=== PATIENT | male | born 1970 | race Two or more races ===

== ENCOUNTER 2019-11-21 15:28 | Emergency (ER) | payer OTHER ==
[~2019-11-21] VITALS: Ht 177.8 cm; Wt 81.6 kg
--- NOTE | 2019-11-21 15:45 | NUR ---
BIB EMS FOR G-TUBE REMOVAL. PATIENT SENT BY PMD FOR G-TUBE REMOVAL, PER SNF RN REPORT, PATIENT ABLE TO TOLERATE ORAL INTAKE, AND G-TUBE REMOVAL NO LONGER NEEDED.
--- NOTE | 2019-11-21 15:53 | NUR ---
CALLED DR. PETTIT FOR TO CALL. LEFT MESSAGE AND WAITING FOR CALL BACK
--- NOTE | 2019-11-21 17:00 | NUR ---
DR PETTIT AND DR GREENBERG CURRENTLY ON DR PAWEL ACEVEDO
--- NOTE | 2019-11-21 17:12 | NUR ---
DR. GREENBERG REMOVED THE G-TUBE. COVERED WITH DRY DRESSING.
--- NOTE | 2019-11-21 18:29 | NUR ---
CALLED AM [facility] 2100 ETA
--- NOTE | 2019-11-21 19:51 | NUR ---
REPORT RECEIVED FROM GIBRAN MCCORMICK FOR DWAN.
--- NOTE | 2019-11-21 20:20 | NUR ---
REPORT GIVEN TO EMS. PT STABLE TO BE TRANSFERRED BACK TO THE FACILITY
[2019-11-21 20:52] VITALS: BP 106/74
--- NOTE | 2019-11-21 20:52 | NUR ---
Patient discharged to home in stable condition. Written and verbal after care instructions given. Patient verbalizes understanding of instruction.
== END 2019-11-21 20:52 ==
LOC: ER 15:34
DX: Z93.1 Gastrostomy status (principal); K21.9 Gastro-esophageal reflux disease without esophagitis

== ENCOUNTER 2019-12-10 17:24 | Inpatient (IN) | payer OTHER ==
[~2019-12-10] VITALS: Ht 175.3 cm; Wt 49.6 kg
--- NOTE | 2019-12-10 17:27 | NUR ---
ERICKA FROM [facility] C/O NAUSEA AND VOMITING FOR 3 TIMES TODAY. TO ER BED 12, HOOKED TO BP CUFF AND POX, CHANGED TO HOSP GOWN, WARM BLANKET PROVIDED, PATIENT AAO x 4, BREATHING EVEN AND UNLABORED. NAD NOTED, NOTED WITH COLOSTOMY, G-TUBE AND ANTOLIN PICC LINE. AWAITING MD CHAPMAN.
--- NOTE | 2019-12-10 17:28 | NUR ---
DR PARSONS AT BEDSIDE
[2019-12-10] MEDS ORDERED: ACET-2605 PO (17:35)
[2019-12-10] MEDS ORDERED: ONDA4TAB5 PO (17:35)
[2019-12-10] MEDS ORDERED: PANT40TA2 PO (17:35)
[2019-12-10] MEDS ORDERED: MAG30ORA PO (17:35)
[2019-12-10] MEDS ORDERED: CHOL100040 PO (17:35)
[2019-12-10] MEDS ORDERED: HEPA50008 SQ (17:35)
[2019-12-10] MEDS ORDERED: ACET-868 PO (17:35)
[2019-12-10] MEDS ORDERED: HYDR-4384 PO (17:35)
--- NOTE | 2019-12-10 17:47 | NUR ---
PICKED UP BY IDALIA SANTO VIA [facility] FOR CT SCAN
[2019-12-10] MEDS ORDERED: IV NS 0.9% 1,000 ML IV ONE (18:00)
[2019-12-10] MEDS ORDERED: ONDANSETRON HCL/PF - ER 4 MG/2 ML VIAL IV ONE (18:00)
[2019-12-10] MEDS ORDERED: ONDANSETRON HCL/PF 4 MG/2 ML VIAL ONE (18:26)
[2019-12-10 18:30] LABS: HEMATOCRIT 34 % (39-51); HEMOGLOBIN 11.4 g/dL (13.5-17.5); LYMPHOCYTES # (AUTO) 1.2 /CMM (0.8-4.8); LYMPHOCYTES % (AUTO) 4.2 % (20.0-44.0); MEAN CORPUSCULAR HGB CONC 34 g/dl (31.0-36.0); MEAN CORPUSCULAR VOLUME 77 fL (80-96); MONOCYTES # (AUTO) 1.8 /CMM (0.1-1.30); MONOCYTES % (AUTO) 6.2 % (2.0-12.0); NEUTROPHILS # (AUTO) 25.5 /CMM (1.8-8.9); NEUTROPHILS % (AUTO) 89.6 % (43.0-81.0); PLATELET COUNT (AUTO) 699 /CMM (150-450); RED BLOOD CELL COUNT(AUTO) 4.43 MIL/uL (4.5-6.0); WHITE BLOOD COUNT (AUTO) 28.5 K/uL (4.3-11.0)
[2019-12-10 18:32] LABS: ALBUMIN 3.6 g/dL (3.4-5.0); BILIRUBIN,DIRECT 0.2 mg/dL (0.0-0.2); BILIRUBIN,TOTAL 0.5 mg/dL (0.2-1.0); CALCIUM, SERUM 10.3 mg/dL (8.5-10.1); CREATININE 4.2 mg/dL (0.6-1.3); POTASSIUM 4.3 mmol/L (3.5-5.1); TOTAL PROTEIN, SERUM 9.1 g/dL (6.4-8.2)
--- NOTE | 2019-12-10 18:54 | NUR ---
PER DR. JAQUELINE MAYO TO GIVE MERREM.
[2019-12-10] MEDS ORDERED: VANCOMYCIN 1 GM in IV D5W 250 ML IV ONE (19:00)
[2019-12-10] MEDS ORDERED: MEROPENEM 500 MG in IV NS 0.9% 50 ML IV ONE (19:00)
[2019-12-10] MEDS ORDERED: NOREPINEPHRINE 8 MG in IV NS 0.9% 242 ML IV PRN (19:00)
[2019-12-10] MEDS ORDERED: PIPERACILLIN /TAZOBACTAM 2.25 G in IV D5W 50 ML IV ONE (19:00)
[2019-12-10] MEDS ORDERED: IV NS 0.9% 1,000 ML BAG IV ONE (19:00)
--- NOTE | 2019-12-10 19:12 | NUR ---
RAPID COVID SWAB DONE AND SENT TO LAB
--- NOTE | 2019-12-10 19:26 | NUR ---
RECORDS ADMINISTRATOR AT BEDSIDE FOR XRAY.
--- NOTE | 2019-12-10 19:57 | NUR ---
CALLED RT FOR ABG
[2019-12-10 20:07] LABS: CALCIUM, SERUM 8.4 mg/dL (8.5-10.1); CREATININE 3.9 mg/dL (0.6-1.3); POTASSIUM 3.8 mmol/L (3.5-5.1)
[2019-12-10 20:13] LABS: ALBUMIN 2.8 g/dL (3.4-5.0); BILIRUBIN,TOTAL 0.4 mg/dL (0.2-1.0); PHOSPHORUS 7.1 mg/dL (2.5-4.9)
[2019-12-10 20:17] LABS: MAGNESIUM 4.2 mg/dL (1.8-2.4)
--- NOTE | 2019-12-10 20:23 | NUR ---
COVID RESULT : NEG
--- NOTE | 2019-12-10 20:29 | NUR ---
RT AT BEDSIDE FOR ABG
--- NOTE | 2019-12-10 20:33 | NUR ---
HOUSE SUP MADE AWARE OF COVID RESULT. AWAITING HUI BED
[2019-12-10 20:38] LABS: ABG OXYGEN SATURATION 93.9 % (92.0-98.5); ABG PCO2 56.5 mmHg (35.0-45.0); ABG PO2 79.6 mmHg (75.0-100.0); AaDO2 2.5 mmHg; COHb 0.5 % (0.5-1.5); MetHb 0.4 % (0.0-1.5); O2Hb 93.1 % (94.0-97.0); SITE, ABG Right Radial; VENT MODE, BG ROOM AIR
--- NOTE | 2019-12-10 20:52 | NUR ---
HUI 114-1
--- NOTE | 2019-12-10 21:17 | NUR ---
called ms unit for report, nurse of patient and charge nurse not available at this time.
--- NOTE | 2019-12-10 21:54 | NUR ---
REPORT GIVEN TO THERESA SHAW HUI.
[2019-12-10 22:31] LABS: APPEARANCE,URINE CLEAR (CLEAR); BILIRUBIN,URINE NEGATIVE (NEGATIVE); BLOOD, URINE TRACE-INTA Ery/uL (NEGATIVE); COLOR,URINE YELLOW (YELLOW); KETONES,URINE NEGATIVE (NEGATIVE); LEUKOCYTE ESTERASE ,URINE NEGATIVE (NEGATIVE); NITRITE, URINE NEGATIVE (NEGATIVE); PH,URINE 8.5 (5.0-8.0); PROTEIN,URINE 30 mg/dl (NEGATIVE); UGLUCOSE NEGATIVE (NEGATIVE); UROBILINOGEN,URINE 0.2 EU/dL (0.2)
[2019-12-10 22:39] LABS: RBC,URINE 0-2 /HPF (0-2)
[2019-12-10 22:40] LABS: BACTERIA,URINE Few /HPF (None Seen); HYALINE CASTS, URINE Few /LPF (None Seen); MUCUS,URINE Few /LPF (None Seen); SQUAMOUS EPITHELIAL CELL,UR Few /HPF (None Seen)
--- NOTE | 2019-12-10 23:00 | NUR ---
RN NOTE PT RECEIVED IN BED A/A/O X3. ON RA SATING ABOVE 95%. NO SOB NOTED. ON TELE MONITOR SHOWING SR AT 80,s.PT HAS RIGHT NARE NG ON INTERMITTENT LOW SUCTION. PT HAS ANTOLIN PICC LINE AND 18G RFA . SAFETY MEASURES IN PLACE. CALL LIGHT IN REACH, BED AT LOWEST POSITION, LOCKED, SIDE RAILS UP X2, HOB ELEVATED.
[2019-12-10 23:10] VITALS: BP 114/81
[2019-12-10] MEDS ORDERED: DEXTROSE 50%-WATER 50 ML DISP.SYRIN IV PRN (23:30)
[2019-12-10] MEDS ORDERED: ZOLPIDEM TARTRATE 5 MG TABLET PO PRN (23:30)
[2019-12-10] MEDS ORDERED: ACETAMINOPHEN 325 MG TABLET PO PRN (23:30)
[2019-12-10] MEDS ORDERED: IV Sodium Chloride 3% 500 ML 500 ML IV SCH (23:30)
[2019-12-10] MEDS ORDERED: ONDANSETRON HCL/PF 4 MG/2 ML VIAL IVP PRN (23:30)
[2019-12-10] MEDS ORDERED: Z GUARD REMEDY 2 OZ OINT TP PRN (23:30)
[2019-12-10] MEDS ORDERED: CEFTRIAXONE 1 G VIAL ONE (23:37)
[2019-12-10 23:46] LABS: URINE SODIUM, RANDOM 52 mmol/l (40-220)
[2019-12-10] MEDS ORDERED: IV Sodium Chloride 3% 500 ML 500 ML IV ONE (23:51)
--- NOTE | 2019-12-10 23:54 | NUR ---
HUI RN NOTE INFORMED DR JAVIER HAYNES PT LACTIC ACID WENT UP TO 4.[address] HAYNES GAVE ORDER TO KEEP PT ON LOW INTERMITTENT SUCTIONING. ORDER NOTED AND CARRIED OUT.
[2019-12-10] MEDS: ENOXAPARIN SODIUM 40 MG/0.4 ML DISP.SYRIN SQ SCH (23:55)
[2019-12-10] MEDS: CEFTRIAXONE 1 G in IV D5W 50 ML IV SCH (23:58)
[2019-12-11] VITALS (9 sets, daily range): BP systolic 91–114; BP diastolic 56–87
[2019-12-11] MEDS: BLOOD SUGAR DIAGNOSTIC 1 EACH STRIP IN SCH ×5 (00:01→23:52)
[2019-12-11] MEDS: IV NS 0.9% 1,000 ML IV PRN ×2 (00:11→19:57)
[2019-12-11 00:16] LABS: OSMOLALITY,SERUM 282 mOS/kg (278-305); OSMOLALITY,URINE 311 mOS/kg (340-1090)
[2019-12-11] MEDS: MORPHINE SULFATE INJ 2 MG/ML DISP.SYRIN IV PRN ×3 (00:18→23:50)
--- NOTE | 2019-12-11 05:13 | NUR ---
per dr braga it is ok to give pt couple of ice chips.
[2019-12-11 07:05] LABS: BASOPHILS # (AUTO) 0.1 /CMM (0.0-0.2); BASOPHILS % (AUTO) 0.2 % (0.0-2.0); HEMATOCRIT 31 % (39-51); HEMOGLOBIN 10.2 g/dL (13.5-17.5); LYMPHOCYTES # (AUTO) 0.5 /CMM (0.8-4.8); LYMPHOCYTES % (AUTO) 1.4 % (20.0-44.0); MEAN CORPUSCULAR HGB CONC 33 g/dl (31.0-36.0); MEAN CORPUSCULAR VOLUME 78 fL (80-96); MONOCYTES # (AUTO) 1.4 /CMM (0.1-1.30); MONOCYTES % (AUTO) 3.7 % (2.0-12.0); NEUTROPHILS % (AUTO) 94.7 % (43.0-81.0); PLATELET COUNT (AUTO) 572 /CMM (150-450)
[2019-12-11 07:06] LABS: ALBUMIN 2.7 g/dL (3.4-5.0); BILIRUBIN,TOTAL 0.4 mg/dL (0.2-1.0); CALCIUM, SERUM 8.8 mg/dL (8.5-10.1); CREATININE 2.9 mg/dL (0.6-1.3); PHOSPHORUS 4.8 mg/dL (2.5-4.9); POTASSIUM 3.1 mmol/L (3.5-5.1); TOTAL PROTEIN, SERUM 7.3 g/dL (6.4-8.2)
[2019-12-11 07:18] LABS: THYROID STIMULATING HORMONE 3.445 uIU/mL (0.358-3.74)
[2019-12-11 07:20] LABS: MAGNESIUM 4.3 mg/dL (1.8-2.4)
--- NOTE | 2019-12-11 07:22 | NUR ---
PT REMAINED STABLE DURING MY SHIFT, REPORT GIVEN TO INCOMING NURSE FOR DAWN.
--- NOTE | 2019-12-11 08:00 | NUR ---
MONITORING COORDINATOR NOTES PATIENT HAS A RIGHT NARE NG TUBE AT LOW INTERMITTENT SUCTION, PLACEMENT OF NG TUBE CHECKED BY AUSCULTATION WITH POSITIVE AIR SOUND, PATIENT WILL HAVE X RAY FOLLOW THROUGH ORDERED ,PATIENT TAKEN TO RADIOLOGY REPORTED TO DR SANDRA RESILIENT TILE INSTALLER THAT BUN 77 CREAT 2.9 CL 77 K 3.1 NA 124 MAG 4.3 STATED THAT PATIENT GETTING BETTER AND HE WILL CHECK IT OUT
--- NOTE | 2019-12-11 08:00 | NUR ---
LOST AND FOUND CLERK NOTE PATIENT IN BED , ALERT ORIENTED X4 , ON RA NO SOB NOTED AT THIS TIME ,, WITJ COLOSTOMY NOTED BUTB IS LEAKING WILL CHANGE SOON , SOTERO WOUND NURSE AT BEDSIDE, ON NPO AT THIS PER EXPERIMENTAL MECHANICFILM SORTER REPORT RN OK TO GIVE ICE CHIPS , ON RT NARE TO LOW INTERMITTED SUCTION WITH BROWN COLOR D, RT IA PICC LINE IN PLACE AND RT FA HL IN PLACE AND FLUSHED WELL DRAINAGE NOTED, ALL NEEDS ATTENDED, BED IN LOWEST AND LOCKED POSITION, CALL LIGHT WITHIN REACH, WILL MONITOR
--- NOTE | 2019-12-11 08:04 | NUR ---
WOUND CARE CONSULT: PT PRESENTS CACHECTIC WITH FRAGILE SCAR TO SACRUM, PRESENT ON ADMISSION. PT NOTED TO HAVE COLOSTOMY AND ILEOSTOMY POUCHES. RECOMMENDATIONS MADE FOR SKIN PROTECTION. DISCUSSED WITH NURSING STAFF. WILL SEE PRN. BURNETTE IN AGREEMENT WITH PLAN OF CARE. Addendum: 12/11/19 at 0805 by SOTERO VAUGHAN WNDNU Amended: Links added.
[2019-12-11 08:21] LABS: LYMPHOCYTES % (MANUAL) 2 % (16-48); MONOCYTES % (MANUAL) 5 % (0-11.0); NEUTROPHILS % (MANUAL) 93 (42-76)
[2019-12-11] MEDS: PANTOPRAZOLE 40 MG VIAL IV SCH (08:48)
--- NOTE | 2019-12-11 08:53 | NUR ---
DIRECTOR HOSPICE OPERATIONS NOTE DR MONAHAN AT BEDSIDE NOTIFIED THAT BUN 77 CREAT 2.9 K 3.1 WBC 39 MAG 4.3 STATED THAT WILL CHECK IT OUT
[2019-12-11] MEDS ORDERED: DIATR MEGLU/DIATRIZOATE SODIUM 120 ML BOTTLE (GASTROGRAPHIN) ONE ×2 (09:56)
--- NOTE | 2019-12-11 10:00 | NUR ---
SLATE SPLITTER NOTE STILL WANTS TO HAVE ICE CHIPS PER RN FLORES SHE SPOKE WITH JAVIER COLON DNP GAVE ORDER OK TO GIVE WILL F\U
[2019-12-11] MEDS: POTASSIUM CL. PREMIX PERIPHER. 50 ML IV SCH ×2 (10:26→11:57)
--- NOTE | 2019-12-11 10:59 | NUR ---
DIAMOND SORTER NOTE DR SANDRA WEDGER AND GLUER NOTIFIED THAT BUN 77 CREAT 2.9 K 3.1 WBC 39 MAG 4.3 STATED THAT WILL CHECK IT OUT ,PER DR JULIO KELLOGG TO GIVE FLU VACCINE ,ORDER CARRIED OUT
--- NOTE | 2019-12-11 11:37 | NUR ---
Seasonal Clerk met with patient today to complete a psychosocial assessment. Reason for assessment is patient is reportedly homeless. Patient is alert and oriented x4 is able to make needs known. Patient is a 49 year-old male. Patient confirmed demographics on face sheet including date of and social security number. Patient reports to be homeless and has been homeless for two years. Patient reports being at [facility] for 1-2 weeks. Patient reports that [facility] placed him at [facility]. Per patient, he is willing to return to [facility] if needed. Patient did not express wanting placement elsewhere. Patient reports approximately $1000 in social security income and approximately $100 in food stamps. SW not able to complete assessment at this time as patient needed x-rays. SW will return to speak to the patient. SW remains available for all needs regarding this patient.
[2019-12-11] MEDS ORDERED: INFLUENZA VACCINE 2020-21 0.5 ML DISP.SYRIN IM ONE (13:00)
--- NOTE | 2019-12-11 13:00 | NUR ---
MS RN NOTE STILL WANTS TO HAVE ICE CHIPS NOTIFIED THAT PATIENT HAS X RAY FOLLOW THROU OK TO HOLD AT THIS TIME EXPLAINED TO PATIENT
--- NOTE | 2019-12-11 13:54 | NUR ---
SWEATBAND FLANGER NOTE BP 87/60 PAT AT BEDSIDE AWARE OF BP, NO NEW ORDER AT THIS TIME
--- NOTE | 2019-12-11 13:58 | NUR ---
STATION ATTENDANT NOTE PAT AT BEDSIDE RN DNP SURGERY ,NO ICE CHIPS AT THIS TIME ,WILL CALL [facility] TO GET RECORD FROM SURGERY , PAT ALSO AWARE THAT WBC IS [address] STATED THAT WILL ORDER [address] ABDOMEN
--- NOTE | 2019-12-11 14:09 | NUR ---
MANAGER ONCOLOGY NOTE NO ICE CHIP AT THIS TIME PAT DNP SPOKE WITH PATIENT
--- NOTE | 2019-12-11 14:41 | NUR ---
television cabinet finisher note since from 1100 till now no suction per radiology and pat dnp aware ,will monitor
[2019-12-11] MEDS ORDERED: IOHEXOL-300 100 ML VIAL IV ONE (17:06)
[2019-12-11] MEDS ORDERED: IV NS 0.9% 250 ML IV ONE (17:06)
[2019-12-11] MEDS ORDERED: CT SWABBABLE VALVE TRANS SET 1 EA INFUS.SET MC ONE (17:06)
--- NOTE | 2019-12-11 17:47 | NUR ---
telesales specialist note did not urinate stated did at radiology department a lot will f\u
--- NOTE | 2019-12-11 17:50 | NUR ---
telecasting technician note [facility]ed [facility]
[2019-12-11 18:38] LABS: CALCIUM, SERUM 8.6 mg/dL (8.5-10.1); CREATININE 2.1 mg/dL (0.6-1.3); POTASSIUM 3.4 mmol/L (3.5-5.1)
--- NOTE | 2019-12-11 19:03 | NUR ---
BELLMAN DRIVER NOTE CT ABDOMEN AND PELVIS DONE , REPORT GIVEN PAT DNP SURGERY, NO NEW ORDER GIVEN
--- NOTE | 2019-12-11 19:15 | NUR ---
MEDICAL VAN DRIVER NOTE UA COLLECTED ORDERED ,WILL CONT TO [facility] ENDORSED CARE TO NEXT SHIFT RN
[2019-12-11] MEDS: ENOXAPARIN SODIUM 40 MG/0.4 ML DISP.SYRIN SQ SCH (23:30)
[2019-12-11] MEDS: CEFTRIAXONE 1 G in IV D5W 50 ML IV SCH (23:49)
[2019-12-12] MEDS: IV NS 0.9% 1,000 ML IV PRN ×3 (04:38→22:39)
[2019-12-12] MEDS: MORPHINE SULFATE INJ 2 MG/ML DISP.SYRIN IV PRN ×2 (06:10→19:04)
[2019-12-12] MEDS: BLOOD SUGAR DIAGNOSTIC 1 EACH STRIP IN SCH ×3 (06:12→17:47)
[2019-12-12 06:14] LABS: APPEARANCE,URINE CLEAR (CLEAR); BILIRUBIN,URINE NEGATIVE (NEGATIVE); BLOOD, URINE NEGATIVE Ery/uL (NEGATIVE); COLOR,URINE YELLOW (YELLOW); KETONES,URINE NEGATIVE (NEGATIVE); LEUKOCYTE ESTERASE ,URINE NEGATIVE (NEGATIVE); NITRITE, URINE NEGATIVE (NEGATIVE); PH,URINE 8.5 (5.0-8.0); PROTEIN,URINE TRACE mg/dl (NEGATIVE); UGLUCOSE NEGATIVE (NEGATIVE); UROBILINOGEN,URINE 0.2 EU/dL (0.2)
[2019-12-12 06:20] LABS: HEMATOCRIT 26 % (39-51); HEMOGLOBIN 8.7 g/dL (13.5-17.5); LYMPHOCYTES # (AUTO) 1.9 /CMM (0.8-4.8); LYMPHOCYTES % (AUTO) 8.1 % (20.0-44.0); MEAN CORPUSCULAR HGB CONC 33 g/dl (31.0-36.0); MEAN CORPUSCULAR VOLUME 78 fL (80-96); MONOCYTES # (AUTO) 1.2 /CMM (0.1-1.30); MONOCYTES % (AUTO) 5.3 % (2.0-12.0); NEUTROPHILS # (AUTO) 19.7 /CMM (1.8-8.9); NEUTROPHILS % (AUTO) 86.6 % (43.0-81.0); PLATELET COUNT (AUTO) 413 /CMM (150-450); RED BLOOD CELL COUNT(AUTO) 3.36 MIL/uL (4.5-6.0); WHITE BLOOD COUNT (AUTO) 22.8 K/uL (4.3-11.0)
[2019-12-12 06:52] LABS: CREATININE, URINE 49.3 MG/DL (30.0-125.0); URINE TOTAL PROTEIN 63.9 mg/dL (0-11.9)
[2019-12-12 06:57] LABS: CALCIUM, SERUM 8.5 mg/dL (8.5-10.1); CREATININE 1.4 mg/dL (0.6-1.3); MAGNESIUM 3.2 mg/dL (1.8-2.4); PHOSPHORUS 2.6 mg/dL (2.5-4.9)
[2019-12-12 07:23] LABS: BACTERIA,URINE None seen /HPF (None Seen); RBC,URINE 0-1 /HPF (0-2); SQUAMOUS EPITHELIAL CELL,UR Few /HPF (None Seen); WBC,URINE 0-2 /HPF (0-3)
--- NOTE | 2019-12-12 07:30 | NUR ---
RECEIVED PATIENT IN BED. NO ACUTE DISTRESS NOTED. PATIENT ALERT & ORIENTED X2-3, WITH EPISODES OF CONFUSION. PATIENT ON ROOM AIR, BREATHING EVEN AND UNLABORED, SATURATING WELL AT 99%. PATIENT STRICT NPO ACKNOWLEDGED, PATIENT PROCEDURE LATER TODAY SO HOLDING LOVENOX ACKNOWLEDGED. PATIENT COLOSTOMY IN PLACE, INTACT, DRAINING WELL. PATIENT RIGHT UPPER ARM PICC LINE IN PLACE, INTACT, PATENT, FLUSHED WELL. PATIENT SAFETY MEASURES MAINTAINED. CALL LIGHT WITHIN REACH. WILL CONTINUE TO MONITOR.
[2019-12-12 08:00] VITALS: BP 97/63
[2019-12-12 08:15] LABS: POTASSIUM 2.8 mmol/L (3.5-5.1)
[2019-12-12] MEDS: PANTOPRAZOLE 40 MG VIAL IV SCH (08:46)
[2019-12-12 08:59] LABS: EOSINOPHIL,URINE None Seen
[2019-12-12] MEDS ORDERED: VANCOMYCIN 0.75 GM in IV D5W 250 ML IV SCH (09:00)
[2019-12-12] MEDS: VANCOMYCIN 1 GM in IV D5W 250 ML IV SCH (09:07)
[2019-12-12] MEDS: POTASSIUM CL. PREMIX PERIPHER. 50 ML IV SCH ×6 (09:07→14:08)
[2019-12-12] MEDS ORDERED: POTASSIUM CL. PREMIX PERIPHER. 50 ML IV SCH (09:30)
--- NOTE | 2019-12-12 10:29 | NUR ---
PATIENT REPORTS PAIN. PATIENT STRICT NPO STATUS, AND BLOOD PRESSURE 92/63. WILL NOT ADMINISTER PRN MORPHINE DUE TO LOW BLOOD PRESSURE, WILL NOT ADMINISTER PRN TYLENOL DUE TO STRICT NPO STATUS Addendum: 12/12/19 at 1037 by ROSITA CHU RN PATIENT SLEEPING BUT AROUSES EASILY, ABLE TO COMMUNICATE. WILL CONTINUE TO MONITOR.
--- NOTE | 2019-12-12 13:59 | NUR ---
FAXED MEDICAL RECORD INFORMATION AUTHORIZATION OVER TO [facility], AND GOT FAX CONFIRMATION. SPOKE TO MARY FROM [employer], SAID THEY WOULD FAX OVER THE MEDICAL RECORDS FOR THE PATIENT PHONE # [phone] FAX # [phone]
[2019-12-12 16:00] VITALS: BP 98/65
--- NOTE | 2019-12-12 18:05 | NUR ---
PATIENT IN BED. NO ACUTE DISTRESS NOTED. PATIENT ALERT & ORIENTED X2-3, WITH EPISODES OF CONFUSION. PATIENT ON ROOM AIR, BREATHING EVEN AND UNLABORED, SATURATING WELL AT 99%. PATIENT STRICT NPO ACKNOWLEDGED, PATIENT PROCEDURE LATER TODAY SO HOLDING LOVENOX ACKNOWLEDGED. PATIENT NG TUBGE IN PLACE, CLAMPED AND WILL CHECK RESIDUALS MANUALLY AT 1999. PATIENT COLOSTOMY IN PLACE, INTACT, DRAINING WELL. PATIENT RIGHT UPPER ARM PICC LINE IN PLACE, INTACT, PATENT, FLUSHED WELL. PATIENT SAFETY MEASURES MAINTAINED. CALL LIGHT WITHIN REACH. WILL ENDORSE PLAN OF CARE TO ONCOMING SHIFT FOR CONTINTUITY OF CARE.
--- NOTE | 2019-12-12 18:38 | NUR ---
PATIENT COMPLAINING OF PAIN. BLOOD PRESSURE STILL IN 90S (SYSTOLIC). PATIENT STRICT NPO, AND BP TOO LOW TO ADMINISTER 4MG MORPHINE ORDERED. CONTACTED DR. MONAHAN ABOUT THIS. AWAITING ORDERS
--- NOTE | 2019-12-12 18:52 | NUR ---
dr. beckford notified patient sbp on90's and c/o pain verified iv pain meds,per md fraser to give 2mg instead of 4mg of morphine,will administer once verified by pharmacy.
--- NOTE | 2019-12-12 19:25 | NUR ---
RN OPENING NOTES: RECEIVED PT A/OX3-4 IN BED RESTING COMFORTABLY. PATIENT IN NO S/SX OF ACUTE DISTRESS AT THIS TIME. NO SOB NOTED. PATIENT'S BREATHING IS EVEN AND UNLABORED. PATIENT IS ON ROOM AIR; TOLERATING WELL; SATURATING @97%.PATIENT ON MED SURG STATUS. NOTED NGT IN PLACED ON THE R NARE. PLACEMENT VERIFIED WITH AUSCULTATION. NO RESIDUAL TAKEN AT THIS TIME ;CLAMPED.NOTED IV SITE ON R UA PICC LINE;PATENT, INTACT AND FLUSHING WELL NO S/S OF INFECTION OR INFILTRATION; WITH IV FLUID RUNNING ORDERED. NOTED [address]IES WITH [address]AGS IN [address]; INTACT AND DRAINING WELL, NO SIGNS OF LEAKAGE AT THIS TIME. SAFETY MEASURES HAVE BEEN PROVIDED AND IMPLEMENTED. PATIENT BED ALARM IS ON. HEAD OF BED ELEVATED. BED IS LOCKED, IN LOWEST POSITION AND SIDE RAILS UP. CALL LIGHT WITHIN REACH OF THE PATIENT. ISOLATION PRECAUTIONS IN PLACE. WILL CONTINUE TO MONITOR AND REASSESS FOR ANY CHANGES AND WILL CARRY OUT ANY ONGOING AND ACTIVE MD ORDER.
[2019-12-12 20:00] VITALS: BP 99/62
--- NOTE | 2019-12-12 20:10 | NUR ---
RN NOTES -CARRIED OUT MISCELLANEOUS ORDER ( PER JOSÉ ANTONIOCARRY OUT CLERK- IF RESIDUAL IN NG-TUBE IS LESS THAN 100ML AT 2000, START CLEAR LIQUID DIET. -RN CHECK PLACEMENT of NG-TUBE, PLACEMENT VERIFIED AND CONFIRMED WITH ANOTHER RN ( SALLY ZALDIVAR) ABLE TO TAKE OUT 40ML OF RESIDUAL. WILL START CLEAR LIQUIDS PER MISCELLANEOUS ORDER. DIETIST MADE AWARE. WILL CONTINUE TO ASSESS AND MONITOT THROUGHOUT THE SHIFT.
[2019-12-12] MEDS: CEFTRIAXONE 1 G in IV D5W 50 ML IV SCH (22:39)
[2019-12-12] MEDS: ENOXAPARIN SODIUM 40 MG/0.4 ML DISP.SYRIN SQ SCH (22:41)
--- NOTE | 2019-12-12 23:00 | NUR ---
RN NOTES NO NOTED CHANGES TO PATIENT CONDITION/STATUS. STILL WORKER HELPER MADE AWARE. WILL CONTINUE TO MONITOR AND REASSESS FOR ANY CHANGES THROUGHOUT THE SHIFT.
[2019-12-13] MEDS: BLOOD SUGAR DIAGNOSTIC 1 EACH STRIP IN SCH ×4 (00:13→17:08)
[2019-12-13] MEDS: INSULIN REGULAR, HUMAN 100 UNIT/ML 3 ML VIAL SQ PRN ×3 (00:14→17:13)
[2019-12-13] MEDS: MORPHINE SULFATE INJ 2 MG/ML DISP.SYRIN IV PRN ×4 (00:26→21:27)
[2019-12-13] MEDS: VANCOMYCIN 1 GM in IV D5W 250 ML IV SCH ×2 (02:49→18:49)
[2019-12-13 04:00] VITALS: BP 100/69
[2019-12-13 06:42] LABS: BASOPHILS % (AUTO) 0.3 % (0.0-2.0); EOSINOPHILS % (AUTO) 0.2 % (0.0-6.0); HEMATOCRIT 23 % (39-51); HEMOGLOBIN 7.5 g/dL (13.5-17.5); LYMPHOCYTES # (AUTO) 1.8 /CMM (0.8-4.8); LYMPHOCYTES % (AUTO) 17.4 % (20.0-44.0); MEAN CORPUSCULAR HGB CONC 32 g/dl (31.0-36.0); MEAN CORPUSCULAR VOLUME 80 fL (80-96); MONOCYTES % (AUTO) 9.4 % (2.0-12.0); NEUTROPHILS # (AUTO) 7.6 /CMM (1.8-8.9); NEUTROPHILS % (AUTO) 72.7 % (43.0-81.0); PLATELET COUNT (AUTO) 376 /CMM (150-450); RED BLOOD CELL COUNT(AUTO) 2.93 MIL/uL (4.5-6.0); WHITE BLOOD COUNT (AUTO) 10.5 K/uL (4.3-11.0)
--- NOTE | 2019-12-13 06:50 | NUR ---
RN NOTES PATIENT REMAINS IN ROOM IN NO SIGNS OF RESPIRATORY DISTRESS. PATIENT SATURATING 99% OF 02. VITAL SIGNS WNL. IV LINE MAINTAINED, INTACT, PATENT AND FLUSHING, NO SITE REDNESS OR INFILTRATION. SAFETY PRECAUTIONS IN PLACE AND COMFORT MEASURES RENDERED. BED IN LOWEST POSITION, CALL LIGHT WITHIN REACH, BREAKS ON, SIDE RAILS UP. ALL NEEDS ATTENDED, MEDICATIONS GIVEN SCHEDULED AND ORDERED ; SHIFT ASSESSMENT/BEDBATH/SKIN CARE DONE. PATIENT KEPT CLEAN AND DRY. WILL ENDORSE TO INCOMING SHIFT FOR DAWN WITH ALL PERTINENT INFO REGARDING PATIENT STATUS.
[2019-12-13 07:05] LABS: CALCIUM, SERUM 8.3 mg/dL (8.5-10.1); CREATININE 0.7 mg/dL (0.6-1.3)
[2019-12-13 07:23] LABS: POTASSIUM 2.8 mmol/L (3.5-5.1)
--- NOTE | 2019-12-13 07:30 | NUR ---
RN OPENING NOTES Received patient in bed, A/Ox4, resting, HOB elevated, on room air tolerating well, SPO2 is 98%, distress or SOB noted, denies pain or discomfort at this time, NGT present in R nares, auscultated, no residual noted, no suction at this time, clamped, IV sites on R hand noted, on Upper arm PICC line, and IV line on FA, both intact and patent, flushing well, two colostomy bags noted on patent abdomen with clear liquid fluid, intact, no drain, no s/sx of leakage noted, safety measures implemented, call light in reach, bed is locked, in lowest position, will cont to monitor
[2019-12-13] MEDS: POTASSIUM CL. PREMIX PERIPHER. 50 ML IV SCH ×5 (08:06→14:23)
[2019-12-13] MEDS: PANTOPRAZOLE 40 MG VIAL IV SCH (08:06)
[2019-12-13] MEDS: IV NS 0.9% 1,000 ML IV PRN (08:06)
--- NOTE | 2019-12-13 10:00 | NUR ---
Per MD order NGT removed
--- NOTE | 2019-12-13 10:30 | NUR ---
Ostomy bags changed, patient is clean
--- NOTE | 2019-12-13 11:30 | NUR ---
complains on pain level 10/10 in his stomach, will give PRN medication
[2019-12-13 12:00] VITALS: BP 100/69
--- NOTE | 2019-12-13 12:00 | NUR ---
blood sugar is 64, patient is eating at this moment.
[2019-12-13] MEDS: ENSURE CLEAR 237 ML LIQUID (MIX BERRY) PO SCH ×2 (14:10→17:09)
--- NOTE | 2019-12-13 17:00 | NUR ---
Ostomy bags changed, output 500cc
--- NOTE | 2019-12-13 19:04 | NUR ---
RN CLOSING NOTES Patient remains in bed, tolerating running Vanco @250 cc/hr wee, comfort need attended, patient is clean, mediation given, maintained clear liquids.ostomy bags changed accordingly, bed is locked, call light in reach, safety measures implemented, will endorse to PM shift RN for RN
--- NOTE | 2019-12-13 19:20 | NUR ---
RN OPENING NOTES: RECEIVED PT A/O X4 IN BED RESTING COMFORTABLY. PATIENT IN NO S/SX OF ACUTE DISTRESS AT THIS TIME. NO SOB NOTED. PATIENT'S BREATHING IS EVEN AND UNLABORED. PATIENT IS ON ROOM AIR; TOLERATING WELL; SATURATING @99%.PATIENT ON MED SURG STATUS. PT ON CLEAR LIQUID DIET .NOTED IV SITE ON R UA PICC LINE;PATENT, INTACT AND FLUSHING WELL NO S/S OF INFECTION OR INFILTRATION; WITH IV FLUID RUNNING ORDERED. NOTED [address]AG[address]; INTACT AND DRAINING WELL, NO SIGNS OF LEAKAGE AT THIS TIME. SAFETY MEASURES HAVE BEEN PROVIDED AND IMPLEMENTED. PATIENT BED ALARM IS ON. HEAD OF BED ELEVATED. BED IS LOCKED, IN LOWEST POSITION AND SIDE RAILS UP. CALL LIGHT WITHIN REACH OF THE PATIENT. ISOLATION PRECAUTIONS IN PLACE. WILL CONTINUE TO MONITOR AND REASSESS FOR ANY CHANGES AND WILL CARRY OUT ANY ONGOING AND ACTIVE MD ORDER.
[2019-12-13 20:00] VITALS: BP 93/66
--- NOTE | 2019-12-13 20:15 | NUR ---
RN NOTES FACILITATED COLOSTOMY OUTPUT REMOVAL; WAS ABLE TO TAKE OUT 450ML OUTPUT. COLOSTOMY BAG.APPLIANCE REMAIN INTACT AND SECURED; NO SIGNS OF LEAKAGE. FAMILY AND CONSUMER SCIENCES PROFESSOR MADE AWARE. WILL CONTINUE TO ASSESS AND MONITOR THROUGHOUT THE SHIFT.
--- NOTE | 2019-12-13 22:00 | NUR ---
RN NOTES NO CHANGE IN PATIENT CONDITION AT THIS TIME PATIENT VITALS STABLE, NO SIGNS OF ACUTE RESPIRATORY DISTRESS. FIRER AUTOMATIC STOKER MADE AWARE. WILL CONTINUE TO MONITOR AND REASSESS FOR ANY CHANGES THROUGHOUT THE SHIFT.
--- NOTE | 2019-12-13 22:30 | NUR ---
RN NOTES FACILITATED COLOSTOMY OUTPUT REMOVAL; WAS ABLE TO TAKE OUT 700ML OUTPUT. COLOSTOMY BAG.APPLIANCE REMAINED INTACT AND SECURED; NO SIGNS OF LEAKAGE. RESERVE OFFICER MADE AWARE. WILL CONTINUE TO ASSESS AND MONITOR THROUGHOUT THE SHIFT.
[2019-12-13] MEDS: CEFTRIAXONE 1 G in IV D5W 50 ML IV SCH (23:27)
[2019-12-13] MEDS: ENOXAPARIN SODIUM 40 MG/0.4 ML DISP.SYRIN SQ SCH (23:29)
--- NOTE | 2019-12-14 00:30 | NUR ---
COLOSTOMY FACILITATED COLOSTOMY OUTPUT REMOVAL; WAS ABLE TO TAKE OUT 200ML OUTPUT. COLOSTOMY BAG.APPLIANCE REMAINED INTACT AND SECURED; NO SIGNS OF LEAKAGE. ANDREAS LEARY MADE AWARE. WILL CONTINUE TO ASSESS AND MONITOR THROUGHOUT THE SHIFT. Addendum: 12/14/19 at 0056 by YARELI DIAZ RN RN NOTES FACILITATED COLOSTOMY OUTPUT REMOVAL; WAS ABLE TO TAKE OUT 200ML OUTPUT. COLOSTOMY BAG.APPLIANCE REMAINED INTACT AND SECURED; NO SIGNS OF LEAKAGE. ANDREAS LEARY MADE AWARE. WILL CONTINUE TO ASSESS AND MONITOR THROUGHOUT THE SHIFT.
[2019-12-14] MEDS: BLOOD SUGAR DIAGNOSTIC 1 EACH STRIP IN SCH ×4 (00:34→17:22)
[2019-12-14] MEDS: INSULIN REGULAR, HUMAN 100 UNIT/ML 3 ML VIAL SQ PRN ×2 (00:35→06:14)
--- NOTE | 2019-12-14 02:20 | NUR ---
RN NOTES FACILITATED COLOSTOMY OUTPUT REMOVAL; WAS ABLE TO TAKE OUT 300ML OUTPUT. COLOSTOMY BAG.APPLIANCE REMAINED INTACT AND SECURED; NO SIGNS OF LEAKAGE. EDUCATIONAL DIAGNOSTICIAN MADE AWARE. WILL CONTINUE TO ASSESS AND MONITOR THROUGHOUT THE SHIFT.
--- NOTE | 2019-12-14 03:00 | NUR ---
RN NOTES NO CHANGE IN PATIENT CONDITION AT THIS TIME PATIENT VITALS STABLE, NO SIGNS OF ACUTE RESPIRATORY DISTRESS. SASH FINISHER MADE AWARE. WILL CONTINUE TO MONITOR AND REASSESS FOR ANY CHANGES THROUGHOUT THE SHIFT.
[2019-12-14 04:00] VITALS: BP 96/55
[2019-12-14] MEDS: MORPHINE SULFATE INJ 2 MG/ML DISP.SYRIN IV PRN ×2 (05:43→09:58)
--- NOTE | 2019-12-14 06:10 | NUR ---
RN NOTES FACILITATED COLOSTOMY OUTPUT REMOVAL; WAS ABLE TO TAKE OUT 100ML OUTPUT. COLOSTOMY BAG.APPLIANCE REMAINED INTACT AND SECURED; NO SIGNS OF LEAKAGE. ASSISTANT HVAC MECHANIC MADE AWARE. WILL CONTINUE TO ASSESS AND MONITOR THROUGHOUT THE SHIFT.
[2019-12-14] MEDS: VANCOMYCIN 1 GM in IV D5W 250 ML IV SCH (06:30)
--- NOTE | 2019-12-14 06:31 | NUR ---
RN NOTES HOLD DUE VANCOMYCIN FOR 0630AM, VANCO TROUGH IS 35 @2012 LAST12.13.2019, PER PROTOCOL HOLD MEDICATION IF TROUGH LEVEL IS GREATER THAN 20. CAT HOOKER MADE AWARE.
[2019-12-14 06:33] LABS: BASOPHILS % (AUTO) 0.2 % (0.0-2.0); EOSINOPHILS % (AUTO) 0.7 % (0.0-6.0); HEMATOCRIT 25 % (39-51); HEMOGLOBIN 8.2 g/dL (13.5-17.5); LYMPHOCYTES # (AUTO) 2.2 /CMM (0.8-4.8); LYMPHOCYTES % (AUTO) 24.2 % (20.0-44.0); MEAN CORPUSCULAR HGB CONC 33 g/dl (31.0-36.0); MEAN CORPUSCULAR VOLUME 81 fL (80-96); MONOCYTES # (AUTO) 0.8 /CMM (0.1-1.30); MONOCYTES % (AUTO) 8.5 % (2.0-12.0); NEUTROPHILS # (AUTO) 6.1 /CMM (1.8-8.9); NEUTROPHILS % (AUTO) 66.4 % (43.0-81.0); PLATELET COUNT (AUTO) 292 /CMM (150-450); RED BLOOD CELL COUNT(AUTO) 3.11 MIL/uL (4.5-6.0); WHITE BLOOD COUNT (AUTO) 9.2 K/uL (4.3-11.0)
[2019-12-14 06:45] LABS: CALCIUM, SERUM 8.4 mg/dL (8.5-10.1); CREATININE 0.6 mg/dL (0.6-1.3); MAGNESIUM 1.4 mg/dL (1.8-2.4); PHOSPHORUS 1.6 mg/dL (2.5-4.9); POTASSIUM 3.7 mmol/L (3.5-5.1)
--- NOTE | 2019-12-14 06:49 | NUR ---
RN CLOSING NOTES PATIENT REMAINS IN ROOM IN NO SIGNS OF RESPIRATORY DISTRESS. PATIENT SATURATING 97% OF 02. VITAL SIGNS WNL. IV LINE MAINTAINED, INTACT, PATENT AND FLUSHING, NO SITE REDNESS OR INFILTRATION. SAFETY PRECAUTIONS IN PLACE AND COMFORT MEASURES RENDERED. BED IN LOWEST POSITION, CALL LIGHT WITHIN REACH, BREAKS ON, SIDE RAILS UP. ALL NEEDS ATTENDED, MEDICATIONS GIVEN SCHEDULED AND ORDERED ; SHIFT ASSESSMENT/BEDBATH/SKIN CARE DONE. PATIENT KEPT CLEAN AND DRY. WILL ENDORSE TO INCOMING SHIFT FOR DAWN WITH ALL PERTINENT INFO REGARDING PATIENT STATUS.
--- NOTE | 2019-12-14 07:30 | NUR ---
RN opening note: Patient on room air, O2 sat 100%, A/O x4, 2 colostomies clean and intact, draining well, so signs of leaking, emptying colostomies Q2hr. R upper arm PICC running NS TKO, R. forearm IV 20 gauge, both intact and flush well, no S/S of infiltration. Clear liquid diet, tolerating well. Safety measure implemented, bed in lowest position, call light in reach, HOB elevated, bed alarm on, bed in lowest locked position, will continue to monitor.
[2019-12-14 08:00] VITALS: BP 108/74
[2019-12-14] MEDS: ENSURE CLEAR 237 ML LIQUID (MIX BERRY) PO SCH ×2 (08:02→17:21)
--- NOTE | 2019-12-14 09:35 | NUR ---
Patient complains on pain in his abdomen 10/10, will give PRN pain meds
[2019-12-14] MEDS: PANTOPRAZOLE 40 MG VIAL IV SCH ×2 (09:40→09:41)
--- NOTE | 2019-12-14 10:39 | NUR ---
pt colostomy bags changed, abdominal pain managed with morphine, clear liquid diet, RBC 3.11, Hgb 8.2, Hematocrit 25.
[2019-12-14] MEDS: Magnesium 1GM/D5W 100ML PREMIX 100 ML IV SCH ×3 (11:21→14:33)
--- NOTE | 2019-12-14 11:30 | NUR ---
Pain managed with morphine IV, pain rated 6/10 when rechecked
[2019-12-14] MEDS ORDERED: VANC1PLA9 IV (11:31)
[2019-12-14] MEDS ORDERED: CEFT1VIA15 IV (11:31)
[2019-12-14 12:00] VITALS: BP 102/71
[2019-12-14] MEDS ORDERED: NEUTRA PHOS 1 POWD.PACKET PO ONE (13:00)
[2019-12-14] MEDS ORDERED: INFLUENZA VACCINE 2020-21 0.5 ML DISP.SYRIN IM ONE (14:00)
--- NOTE | 2019-12-14 15:00 | NUR ---
Cecille Lebron from [facility] endorse report on patient
[2019-12-14 16:00] VITALS: BP 103/71
--- NOTE | 2019-12-14 16:42 | NUR ---
Flu shot administered in Right deltoid.
--- NOTE | 2019-12-14 17:30 | NUR ---
[employer] present to orange picker machine operator patient, ID and Final Destination confirmed, Face sheet provided along with patient's discharge paperwork. Patient education provided, flu shot is given, comfort care provided, patient iis ready to discharge
== END 2019-12-14 17:50 | DRG 720 ==
LOC: ER 17:30 → TELE-TD 20:53 → MEDSG1 12-11 08:41
PROVIDERS: ADMIT Nurse Practitioner Acute Care; ATTEND Internal Medicine
DX: A41.9 Sepsis, unspecified organism (principal); N17.0 Acute kidney failure with tubular necrosis; E87.1 Hypo-osmolality and hyponatremia; E83.52 Hypercalcemia; K21.9 Gastro-esophageal reflux disease without esophagitis; G89.4 Chronic pain syndrome; E86.1 Hypovolemia; N39.0 Urinary tract infection, site not specified; K55.9 Vascular disorder of intestine, unspecified; Z88.0 Allergy status to penicillin; Z79.899 Other long term (current) drug therapy; D47.3 Essential (hemorrhagic) thrombocythemia; E87.4 Mixed disorder of acid-base balance; E83.39 Other disorders of phosphorus metabolism; E83.41 Hypermagnesemia; F31.9 Bipolar disorder, unspecified; Z93.3 Colostomy status; J98.11 Atelectasis; J90 Pleural effusion, not elsewhere classified; W34.00XS Accidental discharge from unspecified firearms or gun, sequela; K56.609 Unspecified intestinal obstruction, unspecified as to partial versus complete obstruction; L89.159 Pressure ulcer of sacral region, unspecified stage
CPT/HCPCS: 36415; 36600; 71045-TC; 74250-TC; 76705-TC; 80048-TC; 80053-TC; 80061-TC; 80076-TC; 80202-TC; 81000-TC; 82570-TC; 82803-TC; 82962-TC; 83540-TC; 83605-TC; 83690-TC; 83735-TC; 83935-TC; 84100-TC; 84155-TC; 84300-TC; 84443-TC; 84484-TC; 85025-TC; 85610-TC; 87040-TC; 87081-TC; 87086-TC; 93307-TC; C9113; C9803; G0378; G0480; J0696; J1650; J1815; J2185; J2270; J2405; J2543; J3370; J3475; J3480; J3490; J7030; J7040; J7050; J7060; Q2036; Q9963; Q9967